=== PATIENT | female | born 1950 | race Hispanic/Latino ===

== ENCOUNTER → 2020-03-31 | Outpatient (CLI) | payer OTHER | END | disposition home or self-care (01) | LOC: SHCH 13:25 | PROVIDERS: ATTEND Internal Medicine Cardiovascular Disease | DX: I87.2 Venous insufficiency (chronic) (peripheral) (principal) ==

== ENCOUNTER → 2020-08-14 | Outpatient (CLI) | payer OTHER | END | disposition home or self-care (01) | LOC: SHCH 14:00 | PROVIDERS: ATTEND Internal Medicine Cardiovascular Disease | DX: R06.02 Shortness of breath (principal) | CPT/HCPCS: 93306 ==

== ENCOUNTER 2021-07-22 06:39 | Day surgery (SDC) | payer OTHER ==
[2021-07-20 11:05] LABS: BASOPHILS % (AUTO) 0.5 % (0.0-5.0); EOSINOPHILS % (AUTO) 0.7 % (0.0-8.0); HEMATOCRIT 34.1 % (36-48); LYMPHOCYTES % (AUTO) 36.7 % (21.0-51.0); MEAN CORPUSCULAR HEMOGLOBIN 30.5 pg (27.0-33.0); MEAN CORPUSCULAR VOLUME 95.5 fL (79-99); MONOCYTES % (AUTO) 8.3 % (3.0-13.0); NEUTROPHILS % (AUTO) 53.5 % (40.0-77.0); PLATELET COUNT (AUTO) 247 K/uL (130-400); RED BLOOD CELL COUNT(AUTO) 3.57 MIL/uL (4.00-5.50); RED CELL DISTRIBUTION WIDTH 13.7 % (11.0-15.5); WHITE BLOOD COUNT (AUTO) 7.4 K/uL (4.8-10.8)
[2021-07-20 11:16] LABS: CREATININE 0.6 mg/dL (0.5-1.5); POTASSIUM 4.3 mmol/L (3.5-5.1)
[2021-07-21 11:50] VITALS: BP 136/60
[~2021-07-22] VITALS: Ht 152.4 cm; Wt 80.1 kg
[2021-07-22] VITALS (14 sets, daily range): BP systolic 117–137; BP diastolic 53–75
[2021-07-22] MEDS: CEFAZOLIN SODIUM 1 GM VIAL IVP SCH ×2 (06:00→09:40)
[~2021-07-22 06:39] MED LIST: ALEN70TA80 PO; HYDR25TA PO; LEVO88CA4 PO; LISI20TA24 PO; METF-444 PO; METHOTREXATE SQ; ROSU5TAB12 PO; SULF500T8 PO
[2021-07-22] MEDS ORDERED: 0.9%NACL 1000ML 1,000 ML IV ONE (07:41)
[2021-07-22] MEDS ORDERED: PROPOFOL 10 MG/ML 20ML VIAL IV ONE (08:13)
[2021-07-22] MEDS ORDERED: MIDAZOLAM HCL 1 MG/ML 2ML VIAL ONE (08:13)
[2021-07-22] MEDS ORDERED: LIDOCAINE PF 100MG/5ML (2%) SYRINGE 5ML ONE (08:13)
[2021-07-22] MEDS ORDERED: ROCURONIUM 10MG/1ML SYR 10 MG/ML ML ONE (08:13)
[2021-07-22] MEDS ORDERED: ONDANSETRON 4MG INJ ONE (08:13)
[2021-07-22] MEDS ORDERED: FENTANYL CITRATE PF 50 MCG/1 ML 2ML VIAL ONE ×2 (08:17→08:54)
[2021-07-22] MEDS ORDERED: CEFAZOLIN SODIUM 1 GM VIAL ONE (08:37)
[2021-07-22] MEDS ORDERED: BUPIVACAINE/PF 0.25% 30ML VIAL IJ ONE (09:46)
[2021-07-22] MEDS ORDERED: DEXAMETHASONE SOD PHOSPHATE 10MG/ML 1ML VIAL ONE (09:49)
[2021-07-22] MEDS ORDERED: ESMOLOL HCL 10 MG/ML 10 ML VIAL ONE (09:55)
[2021-07-22] MEDS ORDERED: GLYCOPYRROLATE 1 MG/5 ML SYRINGE ONE (10:50)
[2021-07-22] MEDS ORDERED: NEOSTIGMINE 5MG/5ML SYR IV ONE (10:50)
[2021-07-22] MEDS ORDERED: ACET1TAB25 PO (10:52)
[2021-07-22] MEDS ORDERED: CEPH500B PO (10:52)
== END 2021-07-22 12:30 | disposition home or self-care (01) ==
LOC: DAH 06:39
PROVIDERS: ATTEND Orthopaedic Surgery
DX: G56.01 Carpal tunnel syndrome, right upper limb (principal); Z20.822 Contact with and (suspected) exposure to COVID-19; M65.341 Trigger finger, right ring finger; I10 Essential (primary) hypertension; E66.01 Morbid (severe) obesity due to excess calories; E78.5 Hyperlipidemia, unspecified; E03.9 Hypothyroidism, unspecified; E11.40 Type 2 diabetes mellitus with diabetic neuropathy, unspecified; Z82.49 Family history of ischemic heart disease and other diseases of the circulatory system; Z79.899 Other long term (current) drug therapy; Z90.89 Acquired absence of other organs; Z90.710 Acquired absence of both cervix and uterus; Z98.890 Other specified postprocedural states
CPT/HCPCS: 26055; 36415; 64721; 80048; 82948 ×2; 85025; 87635; 93005; A4215 ×2; A4221; A4222; A4223; A4565; A4649; A4663; A4930 ×3; A6223; C9803; J0690 ×2; J1100; J2001; J2250; J2405; J2704; J2710; J3010 ×2; J3490 ×3; J7030